=== PATIENT | female | born 1975 | race American Indian/Alaskan Native ===

== ENCOUNTER 2020-10-20 12:57 | Emergency (ER) | payer MEDICARE ==
[2020-10-20 13:46] VITALS: BP 162/90
[2020-10-20] MEDS ORDERED: CYCLOBENZAPRINE 10 MG TAB PO ONE (14:07)
[2020-10-20] MEDS ORDERED: KETOROLAC 60 MG/2 ML INJ IM ONE (14:07)
--- NOTE | 2020-10-20 14:16 | Emergency Department Report ---
ED General Adult HPI - General Chief complaint: Pain General Stated complaint: LEFT UPPER ARM,BACK PAIN Source: patient Mode of arrival: Ambulatory Limitations: No Limitations - History of Present Illness Initial comments: 45-year-old female with no significant past history presents to the ER today with complaints of left shoulder pain, and left-sided neck pain. Patient states that her symptoms started yesterday. Patient states that the pain has been constant. She states that it is worse when she moves her shoulder. She reports mild dull achy pain in the left upper chest and she states that the left arm sort of feels heavy. She denies any injury or strenuous activity. She denies any numbness, tingling, shortness of breath, fever, headache, dizziness or any other symptoms. She has not tried any medications for the pain. She denies any tobacco use. She states that she was concerned that her pain could be related to her heart and so she came to get checked out. She states that her mom had a heart attack in her 50s. MD Complaint: Left shoulder/left neck/left chest pain -: Gradual (yesterday ) Severity scale (0 -10): 9 - Related Data Home Medications Medication Instructions Recorded Confirmed Last Taken Oxycodone HCl/Acetaminophen 1 tab PO Q6HR PRN 08/17/15 08/17/15 08/16/15 [Oxycodone-Acetaminophen 5-325] Allergies Allergy/AdvReac Type Severity Reaction Status Date / Time No Known Allergies Allergy Verified 06/20/13 19:14 ED Review of Systems ROS: Stated complaint: LEFT UPPER ARM,BACK PAIN Other details as noted in HPI Comment: All other systems reviewed and negative Constitutional: denies: chills, diaphoresis, fever, malaise, weakness Eyes: denies: eye pain, eye discharge, vision change ENT: denies: ear pain, throat pain Respiratory: denies: cough, orthopnea, shortness of breath, SOB with exertion, SOB at rest, stridor, wheezing Cardiovascular: chest pain. denies: palpitations, dyspnea on exertion, edema, syncope, paroxysmal nocturnal dyspnea Endocrine: no symptoms reported Gastrointestinal: denies: abdominal pain, nausea, vomiting, diarrhea, constipation, hematemesis, melena, hematochezia Genitourinary: denies: urgency, dysuria, discharge Musculoskeletal: denies: back pain, joint swelling, arthralgia Neurological: denies: headache, weakness, numbness, paresthesias, confusion, abnormal gait, vertigo Psychiatric: denies: anxiety, depression, auditory hallucinations, visual hallucinations, homicidal thoughts, suicidal thoughts Hematological/Lymphatic: denies: easy bleeding, easy bruising ED Past Medical Hx - Past Medical History Hx Hypertension: No Hx GERD: No Hx Renal Disease: No - Surgical History Additional Surgical History: tubal ligation - Social History Smoking Status: Current Every Day Smoker Substance Use Type: None - Medications Home Medications: Home Medications Medication Instructions Recorded Confirmed Last Taken Type Oxycodone HCl/Acetaminophen 1 tab PO Q6HR PRN 08/17/15 08/17/15 08/16/15 History [Oxycodone-Acetaminophen 5-325] ED Physical Exam - General Limitations: No Limitations General appearance: alert, in no apparent distress - Head Head exam: Present: atraumatic, normocephalic, normal inspection - Eye Eye exam: Present: normal appearance, PERRL, EOMI Pupils: Present: normal accommodation - ENT ENT exam: Present: normal exam, mucous membranes moist - Neck Neck exam: Present: normal inspection, tenderness (Mild midline tenderness from mid to lower cervical spine. Mild tenderness left lower paraspinal muscle of the neck and left trapezius muscle with some mild spasms noted in the area. She has full range of motion of the neck), full ROM. Absent: meningismus - Respiratory Respiratory exam: Present: normal lung sounds bilaterally. Absent: respiratory distress - Cardiovascular Cardiovascular Exam: Present: regular rate, normal rhythm, normal heart sounds - Extremities Exam Extremities exam: Present: normal inspection, full ROM, tenderness (Mild tenderness to the posterior and anterior left shoulder. Range of motion of the left shoulder mildly reduced due to pain.), normal capillary refill. Absent: joint swelling - Back Exam Back exam: Present: normal inspection, full ROM - Neurological Exam Neurological exam: Present: alert, oriented X3, CN II-XII intact, normal gait. Absent: motor sensory deficit - Psychiatric Psychiatric exam: Present: normal affect, normal mood - Skin Skin exam: Present: intact ED Course Vital Signs 10/20/20 10/20/20 13:41 14:40 Temperature 98.2 F Pulse Rate 64 Respiratory 17 20 Rate Blood Pressure 162/90 [Right] O2 Sat by Pulse 100 Oximetry ED Medical Decision Making - Lab Data Result diagrams: 10/20/20 14:17 10/20/20 14:17 - Medical Decision Making 1530: I noticed that patient's name was not on the board, when I went back to [facility] nurse to inquire, nurse reported to me that patient told him that she had to leave. Apparently she received a notice while she was in the ER that they were being infected and the stuff was being put outside and so she left without signing an AMA form. Critical care attestation.: If time is entered above; I have spent that time in minutes in the direct care of this critically ill patient, excluding procedure time. ED Disposition Clinical Impression: Neck pain on left side, Left shoulder pain Disposition: Z-[id number] ELOPED Is pt being admited?: No Does the pt Need Aspirin: No Condition: Stable
[2020-10-20 15:33] LABS: Alanine Aminotransferase 13 units/L (7-56); Albumin 4.4 g/dL (3.9-5); Blood Urea Nitrogen 9 mg/dL (7-17); Calcium 9.3 mg/dL (8.4-10.2); Hemolysis Index 23
[2020-10-20 15:46] LABS: BUN/Creatinine Ratio 13
--- NOTE | 2020-10-20 16:00 | XRay Report ---
CHEST 1 VIEW 10/20/2020 2:09 PM INDICATION / CLINICAL INFORMATION: chest pain. COMPARISON: Prior radiographs dated 01/11/16 are not available at this time. FINDINGS: SUPPORT DEVICES: None. HEART / MEDIASTINUM: No significant abnormality. LUNGS / PLEURA: No significant pulmonary or pleural abnormality. No pneumothorax. ADDITIONAL FINDINGS: No significant additional findings. IMPRESSION: 1. No acute findings. Signer Name: Raoul Flores MD Signed: 10/20/2020 3:56 PM Workstation Name: [id number]
[2020-10-20 16:04] LABS: Basophils % (Auto) 0.5 % (0.0-1.8); Eosinophils # (Auto) 0.3 K/mm3 (0.0-0.4); Eosinophils % (Auto) 2.8 % (0.0-4.3); Hematocrit 44.3 % (30.3-42.9); Hemoglobin 14.4 gm/dl (10.1-14.3); Lymphocytes # (Auto) 3.3 K/mm3 (1.2-5.4); Lymphocytes % (Auto) 36.4 % (13.4-35.0); Mean Corpuscular HGB Conc 33 % (30-34); Mean Corpuscular Volume 85 fl (79-97); Monocytes # (Auto) 0.6 K/mm3 (0.0-0.8); Monocytes % (Auto) 7.1 % (0.0-7.3); Platelet Count 214 K/mm3 (140-440); Red Blood Count 5.22 M/mm3 (3.65-5.03)
--- NOTE | 2020-10-21 14:41 | Electrocardiograph Report ---
[facility] Test Date: 2020-10-20 Test Time: 13:51:12 Pat Name: GIFTY HDZ Department: Room: Gender: F Manager Material: HYACINTH : 1975 Requested By: SUHAIL GUERRA Order Number: [id number] Reading MD: Shira Chowdary Measurements Intervals Points Rate: 67 P: 53 SD: 178 QRS: 35 QRSD: 92 T: 81 QT: 447 QTc: 471 Interpretive Statements Sinus rhythm Low voltage, precordial leads No previous ECG available for comparison Electronically Signed On 10-21-2020 14:41:06 EDT by Shira Chowdary
== END 2020-10-20 15:07 | disposition left against medical advice (07) ==
LOC: ED 12:57
DX: M25.512 Pain in left shoulder (principal); M54.2 Cervicalgia; R07.89 Other chest pain; F17.200 Nicotine dependence, unspecified, uncomplicated; Z98.51 Tubal ligation status; Z79.899 Other long term (current) drug therapy
CPT/HCPCS: 36415; 71045; 80053; 84484; 85025; 93005; 96372; 99283; J1885